=== PATIENT | female | born 1955 | race Caucasian/White ===

== ENCOUNTER 2022-10-15 16:49 | Emergency (ER) | payer MEDICARE, OTHER ==
[~2022-10-15] VITALS: Ht 172.7 cm; Wt 59.9 kg
[2022-10-15 16:51] VITALS: BP 122/80; TEMP 97.9; O2SAT 96
== END 2022-10-15 20:21 | disposition left against medical advice (07) ==
LOC: M ED 16:49
DX: M79.605 Pain in left leg (principal); I10 Essential (primary) hypertension; K50.90 Crohn's disease, unspecified, without complications; F41.9 Anxiety disorder, unspecified; F17.200 Nicotine dependence, unspecified, uncomplicated; F10.10 Alcohol abuse, uncomplicated; Z53.9 Procedure and treatment not carried out, unspecified reason